=== PATIENT | female | born 1990 | race Caucasian/White ===

== ENCOUNTER → 2018-07-10 | Outpatient (CLI) | payer BC ==
--- NOTE | 2018-07-10 15:35 | XR ---
EXAMINATION TYPE: XR shoulder complete RT DATE OF EXAM: 07/10/2018 CLINICAL HISTORY: Pain after fall injury. TECHNIQUE: Three views of the right shoulder are obtained. COMPARISON: None. FINDINGS: There is no acute fracture/dislocation evident in the right shoulder. The acromioclavicul ar and glenohumeral joint spaces appear within normal limits. The visualized ribs are intact and unr emarkable. IMPRESSION: There is no acute fracture or dislocation in the right shoulder.
--- NOTE | 2018-07-10 15:35 | XR ---
EXAMINATION TYPE: XR chest 2V DATE OF EXAM: 07/10/2018 COMPARISON: NONE HISTORY: Contusion injury per order with pain TECHNIQUE: Frontal and lateral views of the chest are obtained. FINDINGS: There is no focal air space opacity, pleural effusion, or pneumothorax seen. The cardiac silhouette size is within normal limits. The osseous structures are intact. IMPRESSION: No acute cardiopulmonary process.
== END | disposition home or self-care (01) ==
LOC: RADXRMAIN 14:57
PROVIDERS: ATTEND Midwife
DX: S20.20XA Contusion of thorax, unspecified, initial encounter (principal); M24.811 Other specific joint derangements of right shoulder, not elsewhere classified
CPT/HCPCS: 71046

== ENCOUNTER 2020-04-10 08:50 | Emergency (ER) | payer BC ==
[2020-04-10 08:54] VITALS: BP 137/84; PULSE 66; RESP 18; TEMP 99
[2020-04-10] MEDS ORDERED: PENICILLIN VK 500MG STARTER 4 TAB BTL PO STA (09:10)
[2020-04-10] MEDS ORDERED: KETOROLAC 15 MG/ML 1 ML VIAL IM STA (09:10)
[2020-04-10] MEDS ORDERED: ACET/COD 300 MG/30 MG STARTER PACK 6 TAB BTL PO STA (09:10)
--- NOTE | 2020-04-10 09:14 | ED ---
General Adult HPI - General Chief complaint: Dental/Oral Stated complaint: Mouth pain Time Seen by Provider: 04/10/20 08:55 Source: patient, RN notes reviewed Mode of arrival: ambulatory Limitations: no limitations - History of Present Illness Initial comments: 29-year-old female presents to the emergency room for a chief complaint of right-sided lower dental pain. Patient reports that about a year and a half ago she broke her tooth. States over the past couple days however it started to swell and be painful. Patient states she thinks it is infected. Patient denies any difficulty opening her mouth. Denies any difficulty swallowing. Denies neck stiffness. No fevers or chills.Patient has no other complaints at this time including shortness of breath, chest pain, abdominal pain, nausea or vomiting, headache, or visual changes. - Related Data Previous Rx's Medication Instructions Recorded Penicillin V Potassium [Pen Vee K] 500 mg PO Q6H 10 Days #40 tablet 04/10/20 Allergies Allergy/AdvReac Type Severity Reaction Status Date / Time No Known Allergies Allergy Verified 04/10/20 08:54 Review of Systems ROS Statement: Those systems with pertinent positive or pertinent negative responses have been documented in the HPI. ROS Other: All systems not noted in ROS Statement are negative. Past Medical History Past Medical History: No Reported History History of Any Multi-Drug Resistant Organisms: None Reported Past Surgical History: Orthopedic Surgery, Tonsillectomy Past Psychological History: No Psychological Hx Reported Smoking Status: Current every day smoker Past Alcohol Use History: Occasional Past Drug Use History: None Reported General Exam Limitations: no limitations General appearance: alert, in no apparent distress Head exam: Present: atraumatic, normocephalic, normal inspection Eye exam: Present: normal appearance, PERRL, EOMI. Absent: scleral icterus, conjunctival injection, periorbital swelling ENT exam: Present: normal exam, mucous membranes moist, TM's normal bilaterally, normal external ear exam. Absent: normal oropharynx (Fracture on tooth 29. No evidence of abscess with direct visualization and palpation of the gumline. There is minimal edema of external left lower jawline. Patient able to open mouth. No trismus. No erythema or swelling sending into the neck.) Neck exam: Present: normal inspection, full ROM. Absent: tenderness, meningismus, lymphadenopathy Respiratory exam: Present: normal lung sounds bilaterally. Absent: respiratory distress, wheezes, rales, rhonchi, stridor Cardiovascular Exam: Present: regular rate, normal rhythm, normal heart sounds. Absent: systolic murmur, diastolic murmur, rubs, gallop, clicks GI/Abdominal exam: Present: soft, normal bowel sounds. Absent: distended, tenderness, guarding, rebound, rigid Course Vital Signs 04/10/20 08:52 Temperature 99.0 F Pulse Rate 66 Respiratory 18 Rate Blood Pressure 137/84 O2 Sat by Pulse 99 Oximetry Medical Decision Making - Medical Decision Making Patient presents for dental pain, likely dental infection. Vitals stable. Patient well-appearing. Patient denying any chance of . Patient was given Toradol for pain. 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 She was given penicillin for antibiotic. I did discuss following up with her dentist as she will still need dental treatment. Recommend she return here for any worsening symptoms. Disposition Clinical Impression: Pain, dental Disposition: HOME SELF-CARE Condition: Good Instructions (If sedation given, give patient instructions): Toothache (ED) Additional Instructions: Please take antibiotic as directed. Take Motrin for pain. If pain is severe take Tylenol [address] or operate machinery when taking Tylenol 3. Follow up with your dentist as soon as possible. Return to the emergency room for any worsening symptoms. Prescriptions: Penicillin V Potassium [Pen Vee K] 500 mg PO Q6H 10 Days #40 tablet Is patient prescribed a controlled substance at d/c from ED?: No Referrals: Asim Zamora MD [Primary Care Provider] - 1-2 days Time of Disposition: 09:13
== END 2020-04-10 09:28 | disposition home or self-care (01) ==
LOC: EC 08:50
DX: K08.89 Other specified disorders of teeth and supporting structures (principal); F17.200 Nicotine dependence, unspecified, uncomplicated
CPT/HCPCS: 99282; 96372; J1885

== ENCOUNTER 2021-11-03 00:50 | Emergency (ER) | payer BC, OTHER ==
[2021-11-03 01:02] VITALS: BP 121/77; PULSE 79; RESP 18; TEMP 98
--- NOTE | 2021-11-03 01:23 | ED ---
Extremity Problem HPI - General Chief complaint: Extremity Problem,Nontraumatic Stated complaint: Rt Ankle Swelling/redness Time Seen by Provider: 11/03/21 01:08 Source: patient, RN notes reviewed Mode of arrival: ambulatory Limitations: no limitations - History of Present Illness Initial comments: This is a pleasant 31-year-old female presents arrives stating that she was diagnosed with a DVT in her right lower leg on Tuesday at [facility]. She then noticed that she took her compression stocking off today and there was some swelling at the medial aspect of her right ankle. She denies any erythema. No fever or chills. No shortness of breath or chest pain. Patient is taking Eliquis 5 mg twice daily. She states she has not been missing any doses. He noted the patient is on control pills. 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 Patient has no history of DVT. She states that she felt like she had a charley horse or cramp in her leg for about 8 days prior to this diagnosis. His grandfather had DVTs. Nobody else in the family. No headache, no fever or chills, no changes in vision or hearing, no sore throat or difficulty with speech, no neck pain, no chest pain or shortness of breath, no abdominal pain, no nausea or vomiting, no changes in urination or bowel movements, no numbness or tingling, no skin rashes or lesions. Complaint: extremity swelling - Related Data Previous Rx's Medication Instructions Recorded Penicillin V Potassium [Pen Vee K] 500 mg PO Q6H 10 Days #40 tablet 04/10/20 Allergies Allergy/AdvReac Type Severity Reaction Status Date / Time No Known Allergies Allergy Verified 11/03/21 01:02 Review of Systems ROS Statement: Those systems with pertinent positive or pertinent negative responses have been documented in the HPI. ROS Other: All systems not noted in ROS Statement are negative. Past Medical History Past Medical History: No Reported History Additional Past Medical History / Comment(s): DVT History of Any Multi-Drug Resistant Organisms: None Reported Past Surgical History: Orthopedic Surgery, Tonsillectomy Past Psychological History: No Psychological Hx Reported Smoking Status: Former smoker Past Alcohol Use History: Occasional Past Drug Use History: None Reported General Exam Limitations: no limitations General appearance: alert, in no apparent distress Head exam: Present: atraumatic, normocephalic, normal inspection Eye exam: Present: normal appearance, PERRL, EOMI. Absent: scleral icterus, conjunctival injection, periorbital swelling ENT exam: Present: normal exam, mucous membranes moist Neck exam: Present: normal inspection. Absent: tenderness, meningismus, lymphadenopathy Respiratory exam: Present: normal lung sounds bilaterally. Absent: respiratory distress, wheezes, rales, rhonchi, stridor Cardiovascular Exam: Present: regular rate, normal rhythm, normal heart sounds. Absent: systolic murmur, diastolic murmur, rubs, gallop, clicks GI/Abdominal exam: Present: soft. Absent: distended, tenderness, guarding, rebound, rigid Extremities exam: Present: normal inspection, full ROM, normal capillary refill, pedal edema (Minimal edema noted to the right ankle area. This is rather mild. Pedal pulses are 2+ out of 4.), other (No erythema. No evidence of infectious process.). Absent: tenderness (No significant tenderness. No palpable cord.), joint swelling, calf tenderness Back exam: Present: normal inspection Neurological exam: Present: alert, oriented X3, CN II-XII intact, normal gait. Absent: motor sensory deficit Psychiatric exam: Present: normal affect, normal mood Skin exam: Present: warm, dry, intact, normal color. Absent: rash, cyanosis, diaphoretic, erythema, urticaria, vesicles, petechiae, pallor, mottled, abrasion Course Vital Signs 11/03/21 00:57 Temperature 98 F Pulse Rate 79 Respiratory 18 Rate Blood Pressure 121/77 O2 Sat by Pulse 99 Oximetry Medical Decision Making - Medical Decision Making Patient presented with minimal edema to the right ankle. Was was after she took off her compression stocking. She was diagnosed with a DVT on Tuesday. Patient has been taking Eliquis as directed. I suspect this is from mild diminished venous return due to the clot. There is no evidence of infectious process. Pulses are intact. I discussed conservative measures such as elevation and continue compression with the patient. Work note was given. Patient told to continue the Eliquis. I see no indication for further imaging. Patient has no chest pain or respiratory distress. Treatment plan discussed with the patient. All questions answered. Patient given follow-up information with vascular surgery. Patient was told to return to the ER for any signs or symptoms worsen. Told to return immediately if any other problems arise. All questions answered. Treatment plan discussed. Patient in agreement Every effort has been made to ensure accuracy of this dictation. However, due to the limitations of electronic medical records and dictation devices, errors in charting still occur. Principal Automation Engineer Dr. Faulkner Disposition Clinical Impression: Edema of right lower leg, Deep vein thrombosis (DVT) of right lower extremity Disposition: HOME SELF-CARE Condition: Good Instructions (If sedation given, give patient instructions): Deep Vein Thrombosis (ED) Additional Instructions: Follow-up with your regular physician as directed. Return to the ER immediately if any symptoms worsen, new symptoms arise, or any other problems develop. Make a follow-up appointment with a vascular surgeon as discussed. Elevate your leg as much as possible. Continue the Eliquis as directed. Is patient prescribed a controlled substance at d/c from ED?: No Referrals: None,Stated [Primary Care Provider] - 1-2 days Wayne Robbins DO [STAFF PHYSICIAN] - 11/06/21 Time of Disposition: 01:22
== END 2021-11-03 01:32 | disposition home or self-care (01) ==
LOC: EC 00:50
DX: I82.401 Acute embolism and thrombosis of unspecified deep veins of right lower extremity (principal); Z87.891 Personal history of nicotine dependence
CPT/HCPCS: 99283

== ENCOUNTER → 2022-01-22 | Outpatient (CLI) | payer BC ==
[2022-01-22 20:42] LABS: DNA Double-Stranded Indetermin (NEGATIVE)
== END | disposition home or self-care (01) ==
LOC: LABWHC1 13:07
PROVIDERS: ATTEND Family Medicine
DX: I82.409 Acute embolism and thrombosis of unspecified deep veins of unspecified lower extremity (principal)
CPT/HCPCS: 36415; 84155; 85300; 85301; 85613; 85730; 86225; 87086

== ENCOUNTER → 2022-02-19 | Outpatient (CLI) | payer BC | END | disposition home or self-care (01) | LOC: LABWHC1 13:49 | PROVIDERS: ATTEND Family Medicine | DX: Z79.899 Other long term (current) drug therapy (principal) | CPT/HCPCS: 36415; 86038; 86225 ==

== ENCOUNTER 2022-06-21 13:12 | Observation (INO) | payer BC ==
[2022-06-21] MEDS ORDERED: SODIUM CHLORIDE 0.9% 1,000 ML IV STA (13:54)
[2022-06-21 14:48] LABS: Appearance,Urine Clear (Clear); Bilirubin,Urine Negative (Negative); Blood,Urine Negative (Negative); Color,Urine Light Yellow; Glucose,Urine (UA) Negative (Negative); Ketones,Urine Negative (Negative); Leukocyte Esterase,Urine Negative (Negative); Nitrite,Urine Negative (Negative); Protein,Urine Negative (Negative); Specific Gravity,Urine 1.005 (1.001-1.035); Urobilinogen,Urine <2.0 mg/dL (<2.0)
[2022-06-21 15:09] LABS: Basophils # (A) 0.1 k/uL (0-0.2); Basophils % (A) 0 %; Eosinophils # (A) 0.2 k/uL (0-0.7); Eosinophils % (A) 2 %; Lymphocytes # (A) 2.4 k/uL (1.0-4.8); Lymphocytes % (A) 19 %; MCH 29.6 pg (25.0-35.0); MCHC 33.3 g/dL (31.0-37.0); MCV 88.9 fL (80.0-100.0); Mean Platelet Volume 8.4; Monocytes # (A) 0.4 k/uL (0-1.0); Monocytes % (A) 3 %; Neutrophils # (A) 9.7 k/uL (1.3-7.7); Neutrophils % (A) 75 %; Platelet Count 350 k/uL (150-450); RBC 4.38 m/uL (3.80-5.40); RDW 13.5 % (11.5-15.5); WBC 12.9 k/uL (3.8-10.6)
--- NOTE | 2022-06-21 15:28 | XR ---
EXAMINATION TYPE: XR chest 2V DATE OF EXAM: 06/21/2022 3:22 PM COMPARISON: Chest radiographs from 07/10/2018. TECHNIQUE: XR chest 2V Frontal and lateral views of the chest. CLINICAL INDICATION:Female, 31 years old with history of Chest Pain; FINDINGS: Lungs/Pleura: There is no evidence of pleural effusion, focal consolidation, or pneumothorax. Pulmonary vascularity: Unremarkable. Heart/mediastinum: Cardiomediastinal silhouette is unremarkable. Musculoskeletal: No acute osseous pathology. IMPRESSION: No acute cardiopulmonary disease/process.
[2022-06-21 16:05] LABS: ALT 28 U/L (4-34); AST 24 U/L (14-36); African American GFR (CKD) >90 (>60 ml/min/1.73 sqM); Albumin 4.4 g/dL (3.5-5.0); Alkaline Phosphatase 97 U/L (38-126); Anion Gap 10 mmol/L; Blood Urea Nitrogen 13 mg/dL (7-17); Calcium 9.2 mg/dL (8.4-10.2); Carbon Dioxide 22 mmol/L (22-30); Chloride 107 mmol/L (98-107); Glucose 78 mg/dL (74-99); Magnesium 2.1 mg/dL (1.6-2.3); Non-African American GFR(CKD) >90 (>60 ml/min/1.73 sqM); Potassium 4.2 mmol/L (3.5-5.1); Sodium 139 mmol/L (137-145); Total Bilirubin 0.6 mg/dL (0.2-1.3); Total Protein 7.7 g/dL (6.3-8.2)
[2022-06-21 16:10] LABS: Partial Thromboplastin Time 23.8 sec (22.0-30.0); Prothrombin Time 10.2 sec (9.0-12.0)
--- NOTE | 2022-06-21 17:13 | ED ---
Chest Pain HPI - General Chief Complaint: Chest Pain Stated Complaint: Chest Pain Time Seen by Provider: 06/21/22 13:54 Source: patient, EMS Mode of arrival: EMS Limitations: no limitations - History of Present Illness Initial Comments: Patient is a 31-year-old female who presents to the emergency department with a chief complaint of chest pain. Patient states that she woke up today with a pressure on her chest. Pressure is not radiational, nonexertional. It was associated with shortness of breath, palpitations, lightheadedness and feeling off balance. States symptoms have been waxing and waning throughout the day until the past couple hours when they continued to worsen. No abdominal pain, nausea, vomiting no fever, chills, upper respiratory symptoms. She reports history of sinus bradycardia. She does recall history of echocardiogram and Holter monitor when she was very young. Patient also has history of LLE DVT. No leg pain or swelling. No blood thinner use currently. She denies present and past use of tobacco. Patient has extensive family history of cardiac disease-grandpa before age 50 of heart attack. - Related Data Home Medications Medication Instructions Recorded Confirmed Galcanezumab-Gnlm [Emgality 120 mg SQ Q30D 06/21/22 06/21/22 Syringe] Allergies Allergy/AdvReac Type Severity Reaction Status Date / Time No Known Allergies Allergy Verified 06/21/22 17:55 Review of Systems ROS Statement: Those systems with pertinent positive or pertinent negative responses have been documented in the HPI. ROS Other: All systems not noted in ROS Statement are negative. Past Medical History Past Medical History: No Reported History Additional Past Medical History / Comment(s): DVT History of Any Multi-Drug Resistant Organisms: None Reported Past Surgical History: Orthopedic Surgery, Tonsillectomy Past Psychological History: No Psychological Hx Reported Smoking Status: Former smoker Past Alcohol Use History: Occasional Past Drug Use History: None Reported General Exam Limitations: no limitations General appearance: alert, in no apparent distress Head exam: Present: atraumatic, normocephalic, normal inspection Respiratory exam: Present: normal lung sounds bilaterally. Absent: respiratory distress, wheezes, rales, rhonchi, stridor Cardiovascular Exam: Present: regular rate, normal rhythm, normal heart sounds. Absent: systolic murmur, diastolic murmur, rubs, gallop, clicks Extremities exam: Present: normal inspection, full ROM, normal capillary refill. Absent: tenderness, pedal edema Neurological exam: Present: alert, oriented X3, CN II-XII intact Psychiatric exam: Present: normal affect, normal mood Skin exam: Present: warm, dry, intact, normal color. Absent: rash Course Vital Signs 06/21/22 06/21/22 13:16 18:16 Temperature 98.5 F Pulse Rate 76 46 L Respiratory 18 16 Rate Blood Pressure 128/83 99/64 O2 Sat by Pulse 100 98 Oximetry Chest Pain MDM - MDM Was pt. sent in by a medical professional or institution (, PA, FLEXO OPERATOR, urgent care, hospital, or fci...) When possible be specific @ -[No] Did you speak to anyone other than the patient for history (EMS, parent, family, police, friend...)? What history was obtained from this source @ -[No] Did you review nursing and triage notes (agree or disagree)? Why? @ -[I reviewed and agree with nursing and triage notes] Were old charts reviewed (outside hosp., previous admission, EMS record, old EKG, old radiological studies, urgent care reports/EKG's, fci records)? Report findings @ -[No old charts were reviewed] Differential Diagnosis (chest pain, altered mental status, abdominal pain women, abdominal pain men, vaginal bleeding, weakness, fever, dyspnea, syncope, headache, dizziness, GI bleed, back pain, seizure, CVA, palpatations, mental health)? @ -Differential Chest Pain: Stable Angina, Unstable Angina, STEMI, NSTEMI Aortic Dissection, Pneumothorax, Musculoskeletal, Esophageal Spasm GERD, Cholecystitis, Pancreatitis, Zoster, this is not meant to be an all-inclusive list. EKG interpreted by me (3pts min.). @ -Yes, sinus rhythm without ST segment or T-wave abnormalities. Ventricular rate 69, MS interval 170, QRS duration 92, QTc 420 X-rays interpreted by me (1pt min.). @ -Yes, chest xray negative for acute process CT interpreted by me (1pt min.). @ -[None done] U/S interpreted by me (1pt. min.). @ -[None done] What testing was considered but not performed or refused? (CT, X-rays, U/S, labs)? Why? @ -[None] What meds were considered but not given or refused? Why? @ -[None] Did you discuss the management of the patient with other professionals (professionals i.e. DrBerta, PA, FLEXO OPERATOR, lab, RT, psych nurse, nursing home social worker, energy and sustainability manager, teacher, commercial loan officer, field case manager)? Give summary @ -[No] Was smoking cessation discussed for >3mins.? @ -[No] Was critical care preformed (if so, how long)? @ -[No] Were there social determinants of health that impacted care today? How? (Homelessness, low income, unemployed, alcoholism, drug addiction, transportation, low edu. Level, literacy, decrease access to med. care, senior living, rehab)? @ -[No] Was there de-escalation of care discussed even if they declined (Discuss DNR or withdrawal of care, Hospice)? DNR status @ -[No] What co-morbidities impacted this encounter? (DM, HTN, Smoking, COPD, CAD, Cancer, CVA, ARF, Chemo, Hep., AIDS, mental health diagnosis, sleep apnea, morbid obesity)? @ -[None] Was patient admitted / discharged? Hospital course, mention meds given and route, prescriptions, significant lab abnormalities, going to OR and other pertinent info. @ -This is a 31-year-old female presenting with chest pain. Patient given nitro and aspirin in the ambulance. On arrival her symptoms have improved. Vitals are within normal limits. EKG shows sinus rhythm without ST segment or T-wave abnormalities. Troponin and d-dimer within normal limits. Chest x-ray negative for acute process. With presentation and family history of cardiac dis ease, patient will be admitted for cardiology evaluation. Will trend troponin. Case discussed with Dr. Conde who accepts admission Undiagnosed new problem with uncertain prognosis? @ -[No] Drug Therapy requiring intensive monitoring for toxicity (Heparin, Nitro, Insulin, Cardizem)? @ -[No] Were any procedures done? @ -[No] Diagnosis/symptom? @ -chest pain Acute, or Chronic, or Acute on Chronic? @ -acute Uncomplicated (without systemic symptoms) or Complicated (systemic symptoms)? @ -[default] Side effects of treatment? @ -[No] Exacerbation, Progression, or Severe Exacerbation? @ -[No] Poses a threat to life or bodily function? How? (Chest pain, [place], MA, pneumonia, PE, COPD, DKA, ARF, appy, cholecystitis, CVA, Diverticulitis, Homicidal, Suicidal, threat to staff... and all critical care pts) @ -[No] Dr. Bautista is my attending. Disposition Clinical Impression: Chest pain, Shortness of breath, Palpitations Disposition: ADMITTED IP TO THIS [facility] Condition: Good Is patient prescribed a controlled substance at d/c from ED?: No Referrals: Mainor Conde MD [Primary Care Provider] - 1-2 days
[2022-06-21] MEDS ORDERED: NALOXONE 0.4 MG/ML 1 ML VIAL IV PRN (18:54)
[2022-06-21] MEDS ORDERED: GALCANEZUMAB GNLM 120 MG/ML SQ SCH (19:00)
[2022-06-21] MEDS ORDERED: SODIUM CHLORIDE 0.9% 1,000 ML IV SCH (19:00)
--- NOTE | 2022-06-22 01:46 | HP ---
HISTORY AND PHYSICAL HISTORY OF PRESENT ILLNESS: A 31-year-old white female came in to the hospital with some atypical chest pain. She has a history of migraines, came in with pressure on the chest. It is not radiating, nonexertional associated with shortness of breath, mild palpitations, lightheadedness, feeling off balance, weaning on and off during the day. No nausea, abdominal pain, fevers, chills, history of sinus bradycardia, history of left lower extremity DVT. She has negative D-dimer here, no blood thinners currently. FAMILY HISTORY: Cardiac disease with grandpa dying before age 50. HOME MEDICINES: Unclear with Emgality shot monthly. ALLERGIES: Negative. REVIEW OF SYSTEMS: A 14-point review of systems otherwise negative. PAST MEDICAL HISTORY: DVT. SURGICAL HISTORY: Orthopedic surgery, tonsillectomy. PHYSICAL EXAMINATION: VITAL SIGNS: Stable, afebrile. Temperature 98.5, pulse 40s to 70s, respiratory rate 16 to 18, blood pressure is 90s to 120s over 80s. CARDIOVASCULAR: S1, S2. LUNGS: Clear. GI: Soft. HEMATOLOGY: Negative Homans. PSYCH: Fair mood and affect. NEUROLOGIC: Alert and oriented x3. OPHTHALMOLOGIC: Pupils equal, round, reactive. ASSESSMENT AND PLAN: Atypical chest pain, suspect possibly some asthma. Negative D-dimer assisted PE, myocardial infarction with serial troponins. Prognosis guarded. MMODL / IJN: [id number] /
[2022-06-22] MEDS ORDERED: SYMBICORT 160-4.5 MCG INHALER INHALATION SCH (08:00)
--- NOTE | 2022-06-22 09:22 | P.CRDCN ---
History of Present Illness History of present illness: HISTORY OF PRESENT ILLNESS: This is a 31-year-old female with a past medical history significant for nicotine dependence (patient vapes). 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 We have been asked to see the patient in consultation for chest pain and palpitations. Patient examined at the bedside. Patient states yesterday morning she woke up and felt very tired and exhausted. She states that she felt like she was on a boat and her equilibrium was off. She reports feeling dizzy. She states that she felt like she was going to pass out. She began having heart palpitations. She also reports having a sharp stabbing pain in the middle of her chest while she was having palpitations. She also reports feeling mildly short of breath. She states each episode of palpitations lasted for approximately 3 minutes and then would go away and would come back. She states the entire episode lasted for approximately 15 minutes. She states her mom was concerned and called 911. The patient received aspirin one nitro in route to the hospital. She currently denies any chest pain or pressure. She reports a family history of coronary artery disease and states her uncle from a heart attack at the age of 42 after he was shoveling snow. * EKG reveals sinus mechanism with no signs of acute ischemia * Chest xray negative for acute process * Laboratory data: WBC 12.9. Hemoglobin 13.0. Platelet count 350. D-dimer 0.31. Sodium 139. Potassium 4.2. BUN 13. Creatinine 0.66. Troponin negative 3 * Current home cardiac medications include none REVIEW OF SYSTEMS: At the time of my exam: CONSTITUTIONAL: Denies fever or chills. HEENT: Denies blurred vision, vision changes, or eye pain. Denies hemoptysis CARDIOVASCULAR: Denies chest pain. Denies orthopnea. Denies PND. Denies palpitations RESPIRATORY: Denies shortness of breath. GASTROINTESTINAL: Denies abdominal pain. Denies nausea or vomiting. HEMATOLOGIC: Denies bleeding disorders. GENITOURINARY: Denies any blood in urine. SKIN: Denies pruitis. Denies rash. PHYSICAL EXAM: VITAL SIGNS: Reviewed. GENERAL: Well-developed in no acute distress. HEENT: Head is normocephalic. Pupils are equal, round. Sclerae anicteric. Mucous membranes of the mouth are moist. Neck supple. No JVD or thyromegaly LUNGS: Respirations even and unlabored. Lungs essentially clear to auscultation bilaterally. HEART: Regular rate and rhythm. S1 and S2 heard. ABDOMEN: Soft. Nondistended. Nontender. EXTREMITIES: Normal range of motion. No clubbing or cyanosis. Peripheral pulses intact. No lower extremity edema NEUROLOGIC: Awake and alert. Oriented x 3. ASSESSMENT: Palpitations Chest pain, atypical, troponin negative 3 History of migraines Nicotine dependence PLAN: An acute coronary event has been ruled out Obtain 2-D echo to assess cardiac structure and function Check orthostatic blood pressures Check TSH Check lipid panel Patient to receive 30 day monitor Patient follow-up on an outpatient basis with Dr. Contreras Nurse practitioner note has been reviewed by physician. Signing provider agrees with the documented findings, assessment, and plan of care. Past Medical History Past Medical History: No Reported History Additional Past Medical History / Comment(s): DVT History of Any Multi-Drug Resistant Organisms: None Reported Past Surgical History: Orthopedic Surgery, Tonsillectomy Past Psychological History: No Psychological Hx Reported Smoking Status: Former smoker Past Alcohol Use History: Occasional Past Drug Use History: None Reported Medications and Allergies Home Medications Medication Instructions Recorded Confirmed Type Galcanezumab-Gnlm [Emgality 120 mg SQ Q30D 06/21/22 06/21/22 History Syringe] Allergies Allergy/AdvReac Type Severity Reaction Status Date / Time No Known Allergies Allergy Verified 06/21/22 17:55 Physical Exam Vitals: Vital Signs Temp Pulse Pulse Resp BP BP Pulse Ox 06/22/22 02:15 98.3 F 51 L 17 98/59 98 06/21/22 21:50 98.1 F 55 L 18 101/55 99 06/21/22 20:50 56 L 18 110/62 98 06/21/22 18:16 46 L 16 99/64 98 06/21/22 13:16 98.5 F 76 18 128/83 100 Intake and Output 06/21/22 06/22/22 06/22/22 22:59 06:59 14:59 Intake Total 540 Balance 540 Intake: Oral 540 Other: Voiding Method Toilet # Voids 1 Weight 92.986 kg Results 06/21/22 14:33 06/21/22 14:33 Cardiac Enzymes 06/21/22 06/21/22 06/21/22 Range/Units 14:33 14:33 20:24 AST 24 (14-36) U/L Troponin I <0.012 <0.012 (0.000-0.034) ng/mL 06/21/22 Range/Units 23:43 AST (14-36) U/L Troponin I <0.012 (0.000-0.034) ng/mL Coagulation 06/21/22 Range/Units 15:40 PT 10.2 (9.0-12.0) sec APTT 23.8 (22.0-30.0) sec CBC 06/21/22 Range/Units 14:33 WBC 12.9 H (3.8-10.6) k/uL RBC 4.38 (3.80-5.40) m/uL Hgb 13.0 (11.4-16.0) gm/dL Hct 39.0 (34.0-46.0) % Plt Count 350 (150-450) k/uL Comprehensive Metabolic Panel 06/21/22 Range/Units 14:33 Sodium 139 (137-145) mmol/L Potassium 4.2 (3.5-5.1) mmol/L Chloride 107 (98-107) mmol/L Carbon Dioxide 22 (22-30) mmol/L BUN 13 (7-17) mg/dL Creatinine 0.66 (0.52-1.04) mg/dL Glucose 78 (74-99) mg/dL Calcium 9.2 (8.4-10.2) mg/dL AST 24 (14-36) U/L ALT 28 (4-34) U/L Alkaline Phosphatase 97 (38-126) U/L Total Protein 7.7 (6.3-8.2) g/dL Albumin 4.4 (3.5-5.0) g/dL Current Medications Generic Name Dose Route Start Last Admin Trade Name Freq PRN Reason Stop Dose Admin Budesonide/Formoterol Fumarate 2 puff 06/22/22 08:00 Symbicort 160-4.5 Mcg Inhaler INHALATION RT-BID JAIME Sodium Chloride 1,000 mls @ 75 mls/hr 06/21/22 19:00 06/21/22 20:42 Saline 0.9% IV 75 mls/hr .[id number] JAIME Administration Naloxone HCl 0.2 mg 06/21/22 18:54 Naloxone 0.4 Mg/Ml 1 Ml Vial IV Q2M PRN Opioid Reversal Intake and Output 06/21/22 06/22/22 06/22/22 22:59 06:59 14:59 Intake Total 540 Balance 540 Intake: Oral 540 Other: Voiding Method Toilet # Voids 1 Weight 92.986 kg 06/21/22 14:33 06/21/22 14:33
[2022-06-22] MEDS ORDERED: ACETAMINOPHEN TAB 325 MG TAB PO PRN (13:06)
[2022-06-22 13:28] VITALS: BP 111/71; PULSE 51; RESP 14; TEMP 98.2
--- NOTE | 2022-06-22 16:10 | CA ---
Transthoracic Echo Report Name: Mariella Clifton Age: 31 Gender: F : 1990 Exam Date: 06/22/2022 14:01 Exam Location: [facility] Ht (in): 66 Wt (lb): 205 Ordering Physician: Niyah Kwon Attending/Referring Phys: [id number], Doyle [employer]ological Aide Joy Burnett RDCS Procedure CPT: Indications: LV function, CP Cardiac Hx: Technical Quality: Fair Contrast 1: Total Dose (mL): Contrast 2: Total Dose (mL): MEASUREMENTS (Male / Female) Normal Values 2D ECHO LV Diastolic Diameter PLAX 4.4 cm 4.2 - 5.9 / 3.9 - 5.3 cm LV Systolic Diameter PLAX 2.8 cm IVS Diastolic Thickness 0.8 cm 0.6 - 1.0 / 0.6 - 0.9 cm LVPW Diastolic Thickness 0.9 cm 0.6 - 1.0 / 0.6 - 0.9 cm LV Relative Wall Thickness 0.4 RV Internal Dim ED PLAX 2.6 cm LA Volume 52.8 cm??? 18 - 58 / 22 - 52 cm??? M-MODE Aortic Root Diameter MM 2.6 cm LA Systolic Diameter MM 3.6 cm LA Ao Ratio MM 1.4 AV Cusp Separation MM 1.6 cm DOPPLER AV Peak Velocity 132.9 cm/s AV Peak Gradient 7.1 mmHg LVOT Peak Velocity 131.7 cm/s LVOT Peak Gradient 6.9 mmHg MV Area PHT 3.6 cm??? Mitral E Point Velocity 140.0 cm/s Mitral A Point Velocity 30.7 cm/s Mitral E to A Ratio 4.6 MV Deceleration Time 210.2 ms MV E' Velocity 14.4 cm/s Mitral E to MV E' Ratio 9.7 TR Peak Velocity 261.4 cm/s TR Peak Gradient 27.3 mmHg Right Ventricular Systolic Press 32.3 mmHg FINDINGS Left Ventricle Normal Left ventricular size, wall thickness, systolic function with no obvious regional wall motion abnormalities. Normal Left ventricular diastolic filling pattern. Left ventricular ejection fraction is estimated at 55-60 %. Right Ventricle Normal right ventricular size and function. Right ventricular systolic pressure within normal limits. Right Atrium Normal right atrial size. Left Atrium Normal left atrial size. Mitral Valve Structurally normal mitral valve. No mitral stenosis, regurgitation or prolapse. Aortic Valve Trileaflet aortic valve. No aortic valve stenosis or regurgitation. Tricuspid Valve Structurally normal tricuspid valve. Mild tricuspid regurgitation. Pulmonic Valve Structurally normal pulmonic valve. Trace pulmonic regurgitation. Pericardium No pericardial effusion. Aorta Normal size aortic root and proximal ascending aorta. CONCLUSIONS Normal LV systolic function Structuring normal valves Normal RVSP Normal pericardium Previewed by: Dr. Francisco Contreras MD (Electronically Signed) Final Date: 22 June 2022 16:09
[2022-06-22 17:44] LABS: Chol/HDL Ratio 3.67 Ratio; LDL Cholesterol,Calculated 114.3 mg/dL (0.0-131.0); VLDL Calculation 12.98 mg/dL (5.00-40.00)
== END 2022-06-22 18:34 | disposition home or self-care (01) ==
LOC: EC 13:12 → 6NMEDSUR 17:24
PROVIDERS: ADMIT Family Medicine; ATTEND Family Medicine
DX: R07.89 Other chest pain (principal); R06.02 Shortness of breath; R00.2 Palpitations; G43.909 Migraine, unspecified, not intractable, without status migrainosus; F17.200 Nicotine dependence, unspecified, uncomplicated; Z86.718 Personal history of other venous thrombosis and embolism; Z82.49 Family history of ischemic heart disease and other diseases of the circulatory system; Z20.822 Contact with and (suspected) exposure to COVID-19
CPT/HCPCS: 96360; 96361 ×2; 99285; 36415; 93005; 93306; 93270; 85379; 80061; 80053; 84443; 83735; 84484; 85025; 85610; 85730; 81003; 87636; 71046; G0378 ×2

== ENCOUNTER → 2022-06-24 | Outpatient (CLI) | payer BC ==
--- NOTE | 2022-06-24 16:22 | CT ---
EXAMINATION TYPE: CT chest w con CT DLP: 785 mGycm, Automated exposure control for dose reduction was used. DATE OF EXAM: 06/24/2022 4:16 PM COMPARISON: Chest radiograph from 06/21/2022 CLINICAL INDICATION:Female, 31 years old with history of R07.9, cough and SOB TECHNIQUE: Multiple axial images were obtained through the chest. Sagittal and coronal reformats were created for review. Contrast used:70 mL of Isovue 300 with IV Contrast Oral contrast used: none. FINDINGS: LUNGS/ PLEURA: No focal consolidation, pneumothorax or pleural effusion. AIRWAY: Patent and unremarkable. HEART: Size within normal limits. MEDIASTINUM: No gross evidence of adenopathy. VASCULATURE: No aortic aneurysm. MUSCULOSKELETAL: No acute osseous abnormalities SOFT TISSUES/LYMPH NODES: Unremarkable. LOWER NECK: No significant findings. UPPER ABDOMEN: No significant findings. IMPRESSION: No acute process
== END | disposition home or self-care (01) ==
LOC: RADCTMAIN 15:32
PROVIDERS: ATTEND Family Medicine
DX: R07.9 Chest pain, unspecified (principal)
CPT/HCPCS: 71260; Q9967

== ENCOUNTER → 2022-09-03 | Outpatient (CLI) | payer BC ==
[2022-09-03 16:26] LABS: Gliadin AB IgA, Deaminated NEGATIVE (NEGATIVE); Gliadin AB IgA, Unit 0.4 U/mL; Gliadin AB IgG, Deaminated NEGATIVE (NEGATIVE); Gliadin AB IgG, Unit <0.4 U/mL
== END | disposition home or self-care (01) ==
LOC: LABWHC1 09:02
PROVIDERS: ATTEND Family Medicine
DX: Z79.899 Other long term (current) drug therapy (principal)
CPT/HCPCS: 36415; 83516

== ENCOUNTER 2023-12-12 11:22 | Emergency (ER) | payer BC, OTHER ==
[2023-12-12 11:27] VITALS: TEMP 98.2
--- NOTE | 2023-12-12 12:32 | US ---
EXAMINATION TYPE: Transabdominal DATE OF EXAM: 12/12/2023 11:38 AM COMPARISON: None for this CLINICAL INDICATION: Female, 33 years old with history of Vaginal bleeding in ; bleeding x 3 days - heavy and clotting today with cramping EXAM PERFORMED: Transabdominal (TA) EXAM MEASUREMENTS: GESTATIONAL AGE / DATING Physician Established: (8 weeks/5 days) EDC: 07/18/2024 Dates by LMP: ( weeks/ days) EDC: Dates by First Scan: ( weeks/ days) EDC: Dates by Current Scan for: No IUP seen at this time ( weeks/ days) EDC: MATERNAL ANATOMY Uterus: 11.5 x 6.5 x 6.5 cm Right Ovary: 4.0 x 2.6 x 2.1 Left Ovary: 4.7 x 2.7 x 2.8 cm Post CDS / Adnexa: WNL Presence of free fluid: No Presence of corpus luteal cyst: Left Ovary Presence of subchorionic bleed: Yes GESTATION / SURVEY CRL: Not identified MSD: Not identified Yolk Sac (normal less than 6mm): None Heart Rate: None bpm Rhythm: None IUP: No IUP seen at this time, ? retained products of conception Date of LMP: Unknown Beta HcG (if available): Not available at this time No evidence of . There may be retained products of conception / blood products seen within e ndometrial canal. IMPRESSION: 1. No intrauterine identified at this time. 2. There is thickening of the endometrial canal. This appears heterogenous and retained products of c onception could be considered. 3. Correlation with patient's beta hCG as well as history is recommended. Follow-up should be perform ed as clinically indicated. 4. Left ovarian cyst.
[2023-12-12 13:31] LABS: Anisocytosis Slight; Basophils # (A) 0.1 k/uL (0-0.2); Basophils % (A) 1 %; Eosinophils # (A) 0.2 k/uL (0-0.7); Eosinophils % (A) 1 %; HCT 37.5 % (34.0-46.0); HGB 12.2 gm/dL (11.4-16.0); Lymphocytes # (A) 2.2 k/uL (1.0-4.8); Lymphocytes % (A) 15 %; MCHC 32.6 g/dL (31.0-37.0); MCV 86.1 fL (80.0-100.0); Mean Platelet Volume 8.4; Monocytes # (A) 0.5 k/uL (0-1.0); Monocytes % (A) 4 %; Neutrophils # (A) 10.9 k/uL (1.3-7.7); Neutrophils % (A) 78 %; Platelet Count 407 k/uL (150-450); RBC 4.35 m/uL (3.80-5.40); RDW 16.5 % (11.5-15.5); WBC 14.1 k/uL (3.8-10.6)
[2023-12-12 13:37] LABS: INR 0.9 (<1.2); Partial Thromboplastin Time 24.2 sec (22.0-30.0); Prothrombin Time 9.9 sec (10.0-12.5)
[2023-12-12 13:51] LABS: ALT 33 U/L (4-34); AST 33 U/L (14-36); African American GFR (CKD) >90 (>60 ml/min/1.73 sqM); Albumin 4.4 g/dL (3.5-5.0); Alkaline Phosphatase 98 U/L (38-126); Anion Gap 10 mmol/L; Blood Urea Nitrogen 7 mg/dL (7-17); Calcium 9.5 mg/dL (8.4-10.2); Carbon Dioxide 21 mmol/L (22-30); Chloride 107 mmol/L (98-107); Glucose 85 mg/dL (74-99); Non-African American GFR(CKD) >90 (>60 ml/min/1.73 sqM); Potassium 3.9 mmol/L (3.5-5.1); Sodium 138 mmol/L (137-145); Total Bilirubin 0.6 mg/dL (0.2-1.3); Total Protein 7.5 g/dL (6.3-8.2)
[2023-12-12 14:06] LABS: HCG,Quantitative Serum 4542.3 mIU/mL
--- NOTE | 2023-12-12 14:06 | ED ---
Female Urogenital HPI - General Chief complaint: Vaginal Bleeding Stated complaint: 9wks preg,vag bleeding Time Seen by Provider: 12/12/23 11:53 Source: patient, RN notes reviewed Mode of arrival: ambulatory Limitations: no limitations - History of Present Illness Initial comments: This is a 33-year-old female presents emergency department chief complaint of abdominal vaginal bleeding during . Patient states that she has been experiencing vaginal bleeding since Tuesday with progressive passage of clots today. States that she feels mildly lightheaded as well. endorses pelvic abdominal cramping. Denies dysuria, hematuria, increase in urinary frequency or urgency, fevers, chills. Endorses intermittent nausea and vomiting that is unchanged over the past 3 days. Has had a few ultrasounds during this which has resulted in there being a intrauterine . Last Menstrual Period: 09/24/23 - Related Data Home Medications Medication Instructions Recorded Confirmed Galcanezumab-Gnlm [Emgality 120 mg SQ Q30D 06/21/22 06/21/22 Syringe] Allergies Allergy/AdvReac Type Severity Reaction Status Date / Time No Known Allergies Allergy Verified 06/21/22 17:55 Review of Systems ROS Statement: Those systems with pertinent positive or pertinent negative responses have been documented in the HPI. ROS Other: All systems not noted in ROS Statement are negative. Past Medical History Past Medical History: No Reported History Additional Past Medical History / Comment(s): DVT History of Any Multi-Drug Resistant Organisms: None Reported Past Surgical History: Cholecystectomy, Orthopedic Surgery, Tonsillectomy Past Psychological History: No Psychological Hx Reported Smoking Status: Former smoker Past Alcohol Use History: Occasional Past Drug Use History: None Reported General Exam Limitations: no limitations General appearance: alert, in no apparent distress Eye exam: Present: normal appearance, PERRL, EOMI. Absent: scleral icterus, conjunctival injection, periorbital swelling ENT exam: Present: normal exam, mucous membranes moist Neck exam: Present: normal inspection. Absent: tenderness, meningismus, lymphadenopathy Respiratory exam: Present: normal lung sounds bilaterally. Absent: respiratory distress, wheezes, rales, rhonchi, stridor Cardiovascular Exam: Present: regular rate, normal rhythm, normal heart sounds. Absent: systolic murmur, diastolic murmur, rubs, gallop, clicks GI/Abdominal exam: Present: soft, tenderness (suprapubic/pelvic), normal bowel sounds. Absent: distended, guarding, rebound, rigid Speculum exam: Present: vaginal bleeding, other (bleeding at cervical os, ap pears closed) By manual exam: Absent: cervical motion tenderness, adnexal tenderness Extremities exam: Present: normal inspection, full ROM, normal capillary refill. Absent: tenderness, pedal edema, joint swelling, calf tenderness Back exam: Present: normal inspection Skin exam: Present: warm, dry, intact, normal color. Absent: rash Course Vital Signs 12/12/23 12/12/23 11:24 14:45 Temperature 98.2 F Pulse Rate 79 74 Respiratory 20 18 Rate Blood Pressure 166/92 128/72 O2 Sat by Pulse 99 98 Oximetry Medical Decision Making - Medical Decision Making Was pt. sent in by a medical professional or institution ([facility], [facility] [facility], urgent care, hospital, or snf...) When possible be specific @ -No Did you speak to anyone other than the patient for history (EMS, parent, family, police, friend...)? What history was obtained from this source @ -No Did you review nursing and triage notes (agree or disagree)? Why? @ -I reviewed and agree with nursing and triage notes Were old charts reviewed (outside hosp., previous admission, EMS record, old EKG, old radiological studies, urgent care reports/EKG's, snf records)? Report findings @ -No old charts were reviewed Differential Diagnosis (chest pain, altered mental status, abdominal pain women, abdominal pain men, vaginal bleeding, weakness, fever, dyspnea, syncope, headache, dizziness, GI bleed, back pain, seizure, CVA, palpatations, mental health, musculoskeletal)? @ -Differential Abdominal Pain Women: Appendicitis, Cholecystitis, diverticulosis, ischemic bowel, pancreatitis, hepatitis, UTI, gastroenteritis, AAA, incarcerated hernia, bowel obstruction, constipation, inflammatory bowel, hepatitis, peptic ulcer disease, splenic infarction, perforated viscus, vulvitis, ovarian torsion, PID, kidney stone, placenta abruption, this is not meant to be an all-inclusive list EKG interpreted by me (3pts min.). @ -None X-rays interpreted by me (1pt min.). @ -None done CT interpreted by me (1pt min.). @ -None done U/S interpreted by me (1pt. min.). @ -Abdominal ultrasound revealed no evidence no intrauterine , thickening of the endometrial canal which is consistent with a missed . What testing was considered but not performed or refused? (CT, X-rays, U/S, labs)? Why? @ -None What meds were considered but not given or refused? Why? @ -None Did you discuss the management of the patient with other professionals (professionals i.e. DrBerta, PA, [employer], lab, RT, psych nurse, public health social worker, master dyer, teacher, court security officer, home health care case manager)? Give summary @ -No Was smoking cessation discussed for >3mins.? @ -No Was critical care preformed (if so, how long)? @ -No Were there social determinants of health that impacted care today? How? (Homelessness, low income, unemployed, alcoholism, drug addiction, transportation, low edu. Level, literacy, decrease access to med. care, intermediate, rehab)? @ -No Was there de-escalation of care discussed even if they declined (Discuss DNR or withdrawal of care, Hospice)? DNR status @ -No What co-morbidities impacted this encounter? (DM, HTN, Smoking, COPD, CAD, Cancer, CVA, ARF, Chemo, Hep., AIDS, mental health diagnosis, sleep apnea, mo rbid obesity)? @ -None Was patient admitted / discharged? Hospital course, mention meds given and ro tyson, prescriptions, significant lab abnormalities, going to OR and other pertinent info. @ -Discharged. 33-year-old female with vaginal bleeding during . Patient was originally evaluated as a quick note where she was sent for ultrasound in addition to labs were ordered. I discussed with the patient she states that she is continue to pass clots and has had a large clot passed since she has been in the room. Labs reveal mild leukocytosis of 14.1, elevated neutrophils of 10.9, urinary unremarkable. hCG 4542. Urinalysis moderate blood, no signs of infection. Patient informed of results of ultrasound are consistent with a missed . Additionally there was a largepassage and demise paperwork was filled out with nursing staff and the patient. Recommend that the patient follows up with her OB for serial hCG testing and repeat ultrasound. Patient has expressed understanding. Strict return parameters discussed. Case discussed with Dr. Faulkner Undiagnosed new problem with uncertain prognosis? @ -No Drug Therapy requiring intensive monitoring for toxicity (Heparin, Nitro, Insulin, Cardizem)? @ -No Were any procedures done? @ -No Diagnosis/symptom? @ -missed Acute, or Chronic, or Acute on Chronic? @ -Acute Uncomplicated (without systemic symptoms) or Complicated (systemic symptoms)? @ -uncomplicated Side effects of treatment? @ -No Exacerbation, Progression, or Severe Exacerbation? @ -No Poses a threat to life or bodily function? How? (Chest pain, [place], [place], pneumonia, PE, COPD, DKA, ARF, appy, cholecystitis, CVA, Diverticulitis, Homicidal, Suicidal, threat to staff... and all critical care pts) @ -No - Lab Data Result diagrams: 12/12/23 13:07 12/12/23 13:07 Lab Results 12/12/23 12/12/23 12/12/23 Range/Units 13:07 13:07 13:07 WBC 14.1 H (3.8-10.6) k/uL RBC 4.35 (3.80-5.40) m/uL Hgb 12.2 (11.4-16.0) gm/dL Hct 37.5 (34.0-46.0) % MCV 86.1 (80.0-100.0) fL MCH 28.0 (25.0-35.0) pg MCHC 32.6 (31.0-37.0) g/dL RDW 16.5 H (11.5-15.5) % Plt Count 407 (150-450) k/uL MPV 8.4 Neutrophils % 78 % Lymphocytes % 15 % Monocytes % 4 % Eosinophils % 1 % Basophils % 1 % Neutrophils # 10.9 H (1.3-7.7) k/uL Lymphocytes # 2.2 (1.0-4.8) k/uL Monocytes # 0.5 (0-1.0) k/uL Eosinophils # 0.2 (0-0.7) k/uL Basophils # 0.1 (0-0.2) k/uL Anisocytosis Slight PT 9.9 L (10.0-12.5) sec INR 0.9 (<1.2) APTT 24.2 (22.0-30.0) sec Sodium (137-145) mmol/L Potassium (3.5-5.1) mmol/L Chloride (98-107) mmol/L Carbon Dioxide (22-30) mmol/L Anion Gap mmol/L BUN (7-17) mg/dL Creatinine (0.52-1.04) mg/dL Est GFR (CKD-EPI)AfAm (>60 ml/min/1.73 sqM) Est GFR (CKD-EPI)NonAf (>60 ml/min/1.73 sqM) Glucose (74-99) mg/dL Calcium (8.4-10.2) mg/dL Total Bilirubin (0.2-1.3) mg/dL AST (14-36) U/L ALT (4-34) U/L Alkaline Phosphatase (38-126) U/L Total Protein (6.3-8.2) g/dL Albumin (3.5-5.0) g/dL HCG, Quant mIU/mL Urine Color Colorless Urine Appearance Clear (Clear) Urine pH 5.5 (5.0-8.0) Ur Specific [place] 1.002 (1.001-1.035) Urine Protein Negative (Negative) Urine Glucose (UA) Negative (Negative) Urine Ketones Negative (Negative) Urine Blood Moderate H (Negative) Urine Nitrite Negative (Negative) Urine Bilirubin Negative (Negative) Urine Urobilinogen <2.0 (<2.0) mg/dL Ur Leukocyte Esterase Negative (Negative) Urine RBC 1 (0-5) /hpf Urine WBC <1 (0-5) /hpf Ur Squamous Epith Cells <1 (0-4) /hpf Blood Type Blood Type Recheck Bld Type Recheck Status 12/12/23 12/12/23 Range/Units 13:07 13:09 WBC (3.8-10.6) k/uL RBC (3.80-5.40) m/uL Hgb (11.4-16.0) gm/dL Hct (34.0-46.0) % MCV (80.0-100.0) fL MCH (25.0-35.0) pg MCHC (31.0-37.0) g/dL RDW (11.5-15.5) % Plt Count (150-450) k/uL MPV Neutrophils % % Lymphocytes % % Monocytes % % Eosinophils % % Basophils % % Neutrophils # (1.3-7.7) k/uL Lymphocytes # (1.0-4.8) k/uL Monocytes # (0-1.0) k/uL Eosinophils # (0-0.7) k/uL Basophils # (0-0.2) k/uL Anisocytosis PT (10.0-12.5) sec INR (<1.2) APTT (22.0-30.0) sec Sodium 138 (137-145) mmol/L Potassium 3.9 (3.5-5.1) mmol/L Chloride 107 (98-107) mmol/L Carbon Dioxide 21 L (22-30) mmol/L Anion Gap 10 mmol/L BUN 7 (7-17) mg/dL Creatinine 0.57 (0.52-1.04) mg/dL Est GFR (CKD-EPI)AfAm >90 (>60 ml/min/1.73 sqM) Est GFR (CKD-EPI)NonAf >90 (>60 ml/min/1.73 sqM) Glucose 85 (74-99) mg/dL Calcium 9.5 (8.4-10.2) mg/dL Total Bilirubin 0.6 (0.2-1.3) mg/dL AST 33 (14-36) U/L ALT 33 (4-34) U/L Alkaline Phosphatase 98 (38-126) U/L Total Protein 7.5 (6.3-8.2) g/dL Albumin 4.4 (3.5-5.0) g/dL HCG, Quant 4542.3 mIU/mL Urine Color Urine Appearance (Clear) Urine pH (5.0-8.0) Ur Specific [place] (1.001-1.035) Urine Protein (Negative) Urine Glucose (UA) (Negative) Urine Ketones (Negative) Urine Blood (Negative) Urine Nitrite (Negative) Urine Bilirubin (Negative) Urine Urobilinogen (<2.0) mg/dL Ur Leukocyte Esterase (Negative) Urine RBC (0-5) /hpf Urine WBC (0-5) /hpf Ur Squamous Epith Cells (0-4) /hpf Blood Type A Positive Blood Type Recheck A Pos Bld Type Recheck Status No Disposition Clinical Impression: Missed with demise before 20 completed weeks of gestation Disposition: HOME SELF-CARE Condition: Good Instructions (If sedation given, give patient instructions): Miscarriage (ED) Additional Instructions: Return the emergency department if your symptoms worsen or not improved. Recommend follow-up with your OB in the next 2 to 3 days for serial hCG testing and further evaluation. Is patient prescribed a controlled substance at d/c from ED?: No Referrals: Mainor Conde MD [Primary Care Provider] - 1-2 days Time of Disposition: 14:05
[2023-12-12 14:11] LABS: Appearance,Urine Clear (Clear); Bilirubin,Urine Negative (Negative); Blood,Urine Moderate (Negative); Color,Urine Colorless; Glucose,Urine (UA) Negative (Negative); Ketones,Urine Negative (Negative); Leukocyte Esterase,Urine Negative (Negative); Nitrite,Urine Negative (Negative); PH, Urine 5.5 (5.0-8.0); Protein,Urine Negative (Negative); RBC,Urine 1 /hpf (0-5); Specific Gravity,Urine 1.002 (1.001-1.035); Squamous Epithelial Cell,Urine <1 /hpf (0-4); Urobilinogen,Urine <2.0 mg/dL (<2.0); WBC,Urine <1 /hpf (0-5)
[2023-12-12] MEDS: KETOROLAC 15 MG/ML 1 ML VIAL IVP STA (14:41)
[2023-12-12 14:46] VITALS: BP 128/72; PULSE 74; RESP 18
== END 2023-12-12 14:45 | disposition home or self-care (01) ==
LOC: EC 11:22
DX: O02.1 Missed abortion (principal); Z87.891 Personal history of nicotine dependence; Z3A.09 9 weeks gestation of pregnancy
CPT/HCPCS: 36415; 86900; 86901; 80053; 85025; 85610; 85730; 81001; 84702; 76801; 99284; 96374; J1885